=== PATIENT | male | born 1950 | race Caucasian/White ===

== ENCOUNTER → 2019-07-09 08:34 | Outpatient (CLI) | payer MEDICARE, SELFPAY ==
--- NOTE | 2019-07-09 12:01 | NEURO ---
NCS and/or EMG Patient Report DATE OF SERVICE: 07/09/19 Chucky Leslie is a 69-year-old male presents for electrodiagnostic testing of the upper limbs. He reports numbness tingling and weakness in both hands. Electrodiagnostic findings: Median motor nerve demonstrates prolonged distal latency with reduced amplitude and reduced conduction velocity bilaterally. Ulnar motor response is normal bilaterally. Prolonged median sensory latency at the wrist bilaterally. Prolonged median F wave is noted bilaterally. On needle EMG, all muscles tested in the upper limb showed no evidence of denervation with normal motor unit action potentials. Electrodiagnostic impression: This is an abnormal study in the upper limbs. 1. Electrodiagnostic findings demonstrate bilateral median mononeuropathy. This is consistent with an advanced bilateral carpal tunnel syndrome. If there are any further questions, please do not hesitate to contact me
== END ==
DX: R20.2 Paresthesia of skin (principal); R20.0 Anesthesia of skin
CPT/HCPCS: 95886; 95911